=== PATIENT | female | born 1965 | race Caucasian/White ===

== ENCOUNTER → 2017-01-09 | Outpatient (CLI) | payer BC ==
[~2017-01-09] MED LIST: ADVIN25/60 INH; MULTTAB PO
--- NOTE | 2017-01-09 12:31 | MAMMOGRAPHY REPORT ---
BILATERAL DIGITAL SCREENING MAMMOGRAM TOMOSYNTHESIS WITH CAD: 01/09/2017 CLINICAL HISTORY: Routine screening. Patient has no complaints. TECHNIQUE: Breast tomosynthesis in addition to standard 2D mammography was performed. Current study was also evaluated with a Computer Aided Detection (CAD) system. COMPARISON: Comparison is made to exams dated: 01/08/2016 mammogram, 01/04/2014 mammogram, 01/05/2015 mammogram, 01/01/2013 mammogram, 12/31/2011 mammogram, and 12/26/2010 mammogram - [facility]. BREAST COMPOSITION: There are scattered areas of fibroglandular density in both breasts. FINDINGS: No suspicious masses, calcifications, or areas of architectural distortion are noted in e ither breast. There has been no significant interval change compared to prior exams. Grouped benign -appearing calcifications in the left upper outer quadrant are stable compared to multiple prior exa ms. Asymmetry seen within the left medial breast on the cc view is also stable dating back to the 2 008 exam. IMPRESSION: ACR BI-RADS CATEGORY 2: BENIGN There is no mammographic evidence of malignancy. A 1 year screening mammogram is recommended. The p atient will receive written notification of the results. Approximately 10% of breast cancers are not detected with mammography. A negative mammographic repor t should not delay biopsy if a clinically suggestive mass is present. Susan Eastman M.D. ah/:01/09/2017 10:19:39 Metal Sponge Making Machine Operator: Pamella TREVINO(Sabrina)(Jacey)(BD), [facility] letter sent: Normal 1/2 BI-RADS Code: ACR BI-RADS Category 2: Benign
== END | disposition home or self-care (01) ==
LOC: C.MAMM 08:42
PROVIDERS: ATTEND Internal Medicine
DX: Z12.31 Encounter for screening mammogram for malignant neoplasm of breast (principal)

== ENCOUNTER → 2017-02-24 | Outpatient (CLI) | payer BC ==
[2017-02-24 18:18] LABS: ALT/SGPT 37 U/L (12-78); AST/SGOT 16 U/L (15-37); BLOOD UREA NITROGEN 24 mg/dl (7-18); BUN/CREATININE RATIO 30.1 (10-20); CALCIUM 8.9 mg/dl (8.5-10.1); CARBON DIOXIDE 26 mmol/L (21-32); CHLORIDE 106 mmol/L (98-107); CREATININE 0.79 mg/dl (0.60-1.20); GLUCOSE 94 mg/dl (70-99); POTASSIUM 3.9 mmol/L (3.5-5.1); SODIUM 139 mmol/L (136-145)
[2017-02-24 18:29] LABS: ALB/GLOB RATIO 1.5 (0.9-2); ALKALINE PHOSPHATASE 83 U/L (45-117); CHOLESTEROL 160 mg/dl (0-200); CHOLESTEROL/HDL RATIO 2.5; HDL CHOLESTEROL 65 mg/dl; LDL CHOLESTEROL CALCULATED 66 mg/dl; THYROID STIMULATING HORMONE 0.691 uIu/ml (0.300-4.500); TRIGLYCERIDES 147 mg/dl (0-150); VERY LOW DENSITY LIPOPROT CALC 29 mg/dl
== END | disposition home or self-care (01) ==
LOC: C.LABBFT 12:20
PROVIDERS: ATTEND Internal Medicine
DX: E78.00 Pure hypercholesterolemia, unspecified (principal)

== ENCOUNTER → 2017-05-29 | Outpatient (CLI) | payer BC ==
--- NOTE | 2017-05-29 16:43 | DIAGNOSTIC IMAGING REPORT ---
MRI OF THE RIGHT KNEE WITHOUT CONTRAST CLINICAL HISTORY: Right knee pain. Evaluate for meniscal tear. Recent fall. COMPARISON STUDY: Right knee radiographs May 22, 2017. TECHNIQUE: Utilizing a 1.5 Mayra magnet and dedicated coil, multiplanar, multiecho imaging of the right knee was performed without intravenous or intraarticular contrast. FINDINGS: Alignment of the right knee is anatomic. Extensor mechanism is intact. There is no joint effusion. The lateral meniscus is intact. There is a high-grade tear of the posterior root of the medial meniscus. This also intrasubstance signal within the posterior horn of the medial meniscus. The anterior and posterior cruciate ligaments are intact. The medial collateral ligament and lateral collateral ligament complex are intact. There is a 6 mm focus of chondrosis within the cochlear cartilage with mild subchondral signal abnormality. Otherwise, there is minimal chondrosis within the right knee. No mass or fluid collection shown adjacent to the right knee. IMPRESSION: 1. High-grade tear of the posterior root of the medial meniscus. 2. No lateral meniscal tear. 3. Intact cruciate and collateral ligaments. 4. Focal high-grade chondrosis within the medial trochlear cartilage with subchondral signal abnormality. Otherwise, mild chondrosis within the right knee. Electronically signed by: Willian Michaels M.D. 05/29/2017 4:41 PM Dictated Date/Time: 05/29/2017 4:34 PM
== END | disposition home or self-care (01) ==
LOC: C.MRIBC 15:37
PROVIDERS: ATTEND Orthopaedic Surgery
DX: S83.241A Other tear of medial meniscus, current injury, right knee, initial encounter (principal); M11.261 Other chondrocalcinosis, right knee; M25.561 Pain in right knee; W19.XXXA Unspecified fall, initial encounter

== ENCOUNTER → 2017-10-13 | Outpatient (CLI) | payer BC ==
[2017-10-13 18:50] LABS: BASO % 0.1 %; BASO ABS # 0.01 K/uL (0-0.2); COMPLETE YES; EOS % 0.7 %; HEMATOCRIT 37.7 % (37-47); IG% 0.3 %; LYMPH % 34.9 %; LYMPH ABS # 4.13 K/uL (1.2-3.4); MEAN CELL VOLUME 89.3 fL (80-100); MEAN CORPUSCULAR HEMOGLOBIN 31.5 pg (25-34); MEAN CORPUSCULAR HGB CONC 35.3 g/dl (32-36); MEAN PLATELET VOLUME 10.3 fL (7.4-10.4); MONO % 6.8 %; NEUT % 57.2 %; PLATELET COUNT 362 K/uL (130-400); RED BLOOD COUNT 4.22 M/uL (4.2-5.4); WHITE BLOOD COUNT 11.82 K/uL (4.8-10.8)
--- NOTE | 2017-10-13 19:08 | DIAGNOSTIC IMAGING REPORT ---
CHEST 2 VIEWS ROUTINE CLINICAL HISTORY: 52 years-old Female presenting with R11.0 Nausea. TECHNIQUE: PA and lateral views of the chest were obtained. COMPARISON: 03/05/2013. FINDINGS: Cardiomediastinal silhouette normal. Lungs and pleural spaces clear. Osseous structures normal. Upper abdomen normal. IMPRESSION: 1. No acute cardiopulmonary disease. Electronically signed by: Ronald Jimenez M.D. 10/13/2017 7:06 PM Dictated Date/Time: 10/13/2017 7:06 PM
[2017-10-13 19:10] LABS: ALT/SGPT 32 U/L (12-78); BLOOD UREA NITROGEN 18 mg/dl (7-18); BUN/CREATININE RATIO 20.1 (10-20); CALCIUM 8.9 mg/dl (8.5-10.1); CARBON DIOXIDE 24 mmol/L (21-32); CHLORIDE 105 mmol/L (98-107); CHOLESTEROL 157 mg/dl (0-200); CREATININE 0.91 mg/dl (0.60-1.20); GLUCOSE 121 mg/dl (70-99); POTASSIUM 2.9 mmol/L (3.5-5.1); SODIUM 139 mmol/L (136-145)
[2017-10-13 19:13] LABS: ALB/GLOB RATIO 1.5 (0.9-2); ALKALINE PHOSPHATASE 96 U/L (45-117); AST/SGOT 12 U/L (15-37); CHOLESTEROL/HDL RATIO 2.6; HDL CHOLESTEROL 60 mg/dl; LDL CHOLESTEROL CALCULATED 49 mg/dl; TRIGLYCERIDES 241 mg/dl (0-150); VERY LOW DENSITY LIPOPROT CALC 48 mg/dl
== END | disposition home or self-care (01) ==
LOC: C.RAD 18:01
PROVIDERS: ATTEND Internal Medicine
DX: R11.0 Nausea (principal)

== ENCOUNTER → 2017-10-22 | Outpatient (CLI) | payer OTHER, BC ==
[2017-10-22 12:26] LABS: BASO % 0.2 %; BASO ABS # 0.01 K/uL (0-0.2); COMPLETE YES; EOS % 2.3 %; HEMATOCRIT 40.2 % (37-47); IG% 0.2 %; LYMPH % 26.3 %; LYMPH ABS # 1.73 K/uL (1.2-3.4); MEAN CELL VOLUME 94.6 fL (80-100); MEAN CORPUSCULAR HEMOGLOBIN 31.1 pg (25-34); MEAN CORPUSCULAR HGB CONC 32.8 g/dl (32-36); MEAN PLATELET VOLUME 10.4 fL (7.4-10.4); MONO % 9.6 %; NEUT % 61.4 %; PLATELET COUNT 288 K/uL (130-400); RED BLOOD COUNT 4.25 M/uL (4.2-5.4); WHITE BLOOD COUNT 6.58 K/uL (4.8-10.8)
[2017-10-22 12:54] LABS: ALT/SGPT 38 U/L (12-78); AST/SGOT 15 U/L (15-37); BLOOD UREA NITROGEN 20 mg/dl (7-18); BUN/CREATININE RATIO 22.4 (10-20); CALCIUM 9.1 mg/dl (8.5-10.1); CARBON DIOXIDE 26 mmol/L (21-32); CHLORIDE 106 mmol/L (98-107); GLUCOSE 93 mg/dl (70-99); POTASSIUM 4.5 mmol/L (3.5-5.1); SODIUM 139 mmol/L (136-145)
[2017-10-22 12:56] LABS: ALB/GLOB RATIO 1.3 (0.9-2); ALKALINE PHOSPHATASE 85 U/L (45-117)
== END | disposition home or self-care (01) ==
LOC: C.LABBFT 07:21
PROVIDERS: ATTEND Internal Medicine
DX: R19.7 Diarrhea, unspecified (principal); R07.89 Other chest pain; E87.6 Hypokalemia

== ENCOUNTER → 2018-01-13 | Outpatient (CLI) | payer OTHER ==
--- NOTE | 2018-01-13 15:15 | MAMMOGRAPHY REPORT ---
BILATERAL DIGITAL SCREENING MAMMOGRAM TOMOSYNTHESIS WITH CAD: 01/13/2018 CLINICAL HISTORY: Routine screening. Patient has no complaints. TECHNIQUE: Breast tomosynthesis in addition to standard 2D mammography was performed. Current study was also evaluated with a Computer Aided Detection (CAD) system. COMPARISON: Comparison is made to exams dated: 01/09/2017 mammogram, 01/08/2016 mammogram, 01/05/2015 m ammogram, 01/04/2014 mammogram, 01/01/2013 mammogram, and 06/30/2012 mammogram - [facility]. BREAST COMPOSITION: There are scattered areas of fibroglandular density in both breasts. FINDINGS: A linear scar marker overlies the upper outer posterior left breast, denoting an area of pr ior surgery. There have been mild involutional changes comparing to more remote prior mammograms. S table punctate densities in the left upper outer quadrant. Stable focal asymmetry in the far posteri or 12:00 to 1:00 right breast. No suspicious mass, architectural distortion or cluster of microcalci fications is seen. IMPRESSION: ACR BI-RADS CATEGORY 1: NEGATIVE There is no mammographic evidence of malignancy. A 1 year screening mammogram is recommended. The pa tient will receive written notification of the results. Approximately 10% of breast cancers are not detected with mammography. A negative mammographic report should not delay biopsy if a clinically suggestive mass is present. Socorro Dowd M.D. ay/:01/13/2018 09:24:12 International Project Engineer: Sabrina Houser M, [facility] letter sent: Normal 1/2 BI-RADS Code: ACR BI-RADS Category 1: Negative
== END | disposition home or self-care (01) ==
LOC: C.MAMM 08:36
PROVIDERS: ATTEND Internal Medicine
DX: Z12.31 Encounter for screening mammogram for malignant neoplasm of breast (principal)

== ENCOUNTER 2025-02-09 08:48 | Observation (INO) ==
--- NOTE | 2025-01-12 11:25 | PAT Medication Instructions ---
Medication Instructions Date of Service January 12, 2025 Home Medications Medication Instructions Recorded albuterol sulfate 90 mcg/actuation 2 puffs inhalation QID PRN 01/19/20 aerosol inhaler shortness of breath or wheezing #8.5 grams nebulizers #1 ea 03/06/21 albuterol sulfate 2.5 mg/3 mL 2.5 mg (3 mL) inhalation Q4H PRN 05/16/23 (0.083 %) solution for nebulization shortness of breath or wheezing #180 mL budesonide-formoterol HFA 160 2 puff inhalation BID #10.2 grams 02/04/24 mcg-4.5 mcg/actuation aerosol inhaler (Symbicort) ipratropium bromide 0.02 % 2.5 ml inhalation QID PRN 07/08/24 solution for inhalation shortness of breath or wheezing #75 mL paroxetine HCl 10 mg tablet 10 mg PO HS #90 tabs 08/04/24 pantoprazole 40 mg tablet,delayed 40 mg PO HS #90 tabs 11/15/24 release benralizumab 30 mg/mL subcutaneous 30 mg subcut .COMPLEX #1 mL 12/16/24 auto-injector (Fasenra Pen) atorvastatin 20 mg tablet 20 mg PO HS #90 tabs 12/27/24 albuterol sulfate 90 mcg/actuation aerosol inhaler 2 puffs inhalation QID PRN shortness of breath or wheezing multivitamin (Multiple Vitamins tablet) 1 tab PO HS albuterol sulfate 2.5 mg/3 mL (0.083 %) solution for nebulization 2.5 mg (3 mL) inhalation Q4H PRN shortness of breath or wheezing cholecalciferol (vitamin D3) 25 mcg (1,000 unit) capsule 25 mcg PO QAM budesonide-formoterol HFA 160 mcg-4.5 mcg/actuation aerosol inhaler (Symbicort) 2 puff inhalation BID ipratropium bromide 0.02 % solution for inhalation 2.5 ml inhalation QID PRN shortness of breath or wheezing paroxetine HCl 10 mg tablet 10 mg PO HS pantoprazole 40 mg tablet,delayed release 40 mg PO HS benralizumab 30 mg/mL subcutaneous auto-injector (Fasenra Pen) 30 mg subcut .COMPLEX atorvastatin 20 mg tablet 20 mg PO HS cetirizine 10 mg tablet (Zyrtec) 10 mg PO QAM famotidine 20 mg tablet 20 mg PO QAM meloxicam 15 mg tablet 15 mg PO HS PRN pain ASK your surgeon for instructions meloxicam 15 mg tablet 15 mg PO HS PRN pain ASK your prescriber and surgeon benralizumab 30 mg/mL subcutaneous auto-injector (Fasenra Pen) 30 mg subcut .COMPLEX DO NOT take the morning of surgery cholecalciferol (vitamin D3) 25 mcg (1,000 unit) capsule 25 mcg PO QAM cetirizine 10 mg tablet (Zyrtec) 10 mg PO QAM Take morning of surgery With a small sip of water, OTHERWISE NOTHING TO EAT OR DRINK AFTER MIDNIGHT: albuterol sulfate 90 mcg/actuation aerosol inhaler 2 puffs inhalation QID PRN shortness of breath or wheezing (use if needed; please bring rescue inhaler with you to hospital day of surgery if possible) albuterol sulfate 2.5 mg/3 mL (0.083 %) solution for nebulization 2.5 mg (3 mL) inhalation Q4H PRN shortness of breath or wheezing (if needed) budesonide-formoterol HFA 160 mcg-4.5 mcg/actuation aerosol inhaler (Symbicort) 2 puff inhalation BID ipratropium bromide 0.02 % solution for inhalation 2.5 ml inhalation QID PRN shortness of breath or wheezing (if needed) famotidine 20 mg tablet 20 mg PO QAM Take evening before surgery albuterol sulfate 90 mcg/actuation aerosol inhaler 2 puffs inhalation QID PRN shortness of breath or wheezing (if needed) multivitamin (Multiple Vitamins tablet) 1 tab PO HS albuterol sulfate 2.5 mg/3 mL (0.083 %) solution for nebulization 2.5 mg (3 mL) inhalation Q4H PRN shortness of breath or wheezing (if needed) budesonide-formoterol HFA 160 mcg-4.5 mcg/actuation aerosol inhaler (Symbicort) 2 puff inhalation BID ipratropium bromide 0.02 % solution for inhalation 2.5 ml inhalation QID PRN shortness of breath or wheezing (if needed) paroxetine HCl 10 mg tablet 10 mg PO HS pantoprazole 40 mg tablet,delayed release 40 mg PO HS atorvastatin 20 mg tablet 20 mg PO HS Other Notes If you have any questions please call us at [phone] or [phone] or [phone] or [phone]
--- NOTE | 2025-01-20 10:35 | Anesthesiology Consultation ---
Date of Service January 20, 2025 Assessment & Plan (1) Encounter for pre-operative examination: Plan - Outpatient joint assessment: Patient is currently scheduled for inpatient pathway. If re-evaluated and patient/surgeon requests outpatient pathway, patient is acceptable candidate for outpatient joint program from anesthesia standpoint pending surgeon's office assessment of pt motivation/support/completion of same day joint program preop requirements. Chart Review Chart Review: Acceptable Risk for Surgery and Patient seen in Pre Admission Testing Teaching & Discussion Pre-Anesthesia Teaching/Discussion Notes: Instructed NPO after midnight before surgery, except medications with 15 cc of water. Medication instructions provided according to the PAT guidelines. History Surgery Operation Date: 02/09/25 08:55 Proposed Procedures p Right Total Knee Arthroplasty - Efraín Weiss MD Height/Weight Height: 5 ft 4 in Weight: 78.9 kg Allergies Allergy/AdvReac Type Severity Reaction Status Date / Time No Known Drug Allergies Allergy Verified 01/12/25 10:17 Medications Home Medications Medication Instructions Recorded Confirmed Last Taken albuterol sulfate 90 mcg/actuation 2 puffs inhalation QID PRN 01/19/20 01/12/25 12/07/21 aerosol inhaler shortness of breath or wheezing #8.5 grams multivitamin (Multiple Vitamins 1 tab PO HS 11/22/20 01/12/25 12/10/21 tablet) nebulizers #1 ea 03/06/21 07/08/24 Unknown albuterol sulfate 2.5 mg/3 mL 2.5 mg (3 mL) inhalation Q4H PRN 05/16/23 01/12/25 Unknown (0.083 %) solution for nebulization shortness of breath or wheezing #180 mL cholecalciferol (vitamin D3) 25 25 mcg PO QAM 12/01/23 01/12/25 Unknown mcg (1,000 unit) capsule budesonide-formoterol HFA 160 2 puff inhalation BID #10.2 grams 02/04/24 01/12/25 Unknown mcg-4.5 mcg/actuation aerosol inhaler (Symbicort) ipratropium bromide 0.02 % 2.5 ml inhalation QID PRN 07/08/24 01/12/25 Unknown solution for inhalation shortness of breath or wheezing #75 mL paroxetine HCl 10 mg tablet 10 mg PO HS #90 tabs 08/04/24 01/12/25 Unknown pantoprazole 40 mg tablet,delayed 40 mg PO HS #90 tabs 11/15/24 01/12/25 Unknown release benralizumab 30 mg/mL subcutaneous 30 mg subcut .COMPLEX #1 mL 12/16/24 01/12/25 Unknown auto-injector (Fasenra Pen) atorvastatin 20 mg tablet 20 mg PO HS #90 tabs 12/27/24 01/12/25 Unknown cetirizine 10 mg tablet (Zyrtec) 10 mg PO QAM 01/12/25 01/12/25 Unknown famotidine 20 mg tablet 20 mg PO QAM 01/12/25 01/12/25 Unknown meloxicam 15 mg tablet 15 mg PO HS PRN pain 01/12/25 01/12/25 Unknown Past Medical History Medical History (Updated 01/20/25 @ 12:09 by Charito Orr PA-C) Asthma stable, follows with Dr Cortés next appointment 02/01/2025 uses inhaler daily, and nebulizer prn Chronic SI joint pain GERD (gastroesophageal reflux disease) controlled, stable per pt Hyperlipidemia Hypertriglyceridemia Left lumbar radiculopathy Lumbar degenerative disc disease Lumbar spondylosis Nausea and vomiting after administration of anesthetic agent denies needing scop patch Right knee DJD SNHL (sensorineural hearing loss) TMJ (temporomandibular joint disorder) no locking Patient denies h/o stroke, seizures, heart attack, heart failure, DM, HTN, blood clots/DVTs or blood transfusions. Exercise / Class Metabolic Activity II 4-5 Yardwork/Stairs/Walk up hill (denies chest discomfort or shortness of breath with one flight of stairs) Past Family History Family History Mother Diabetes Coronary heart disease Stroke Father Lung cancer Sister Obesity Aunt Breast cancer Other No family history of adverse response to anesthesia Denies family history of Ovarian cancer Prostate cancer Myocardial infarction Colorectal cancer Past Surgical History Surgical History History of arthroscopy of right knee History of section History of colonoscopy History of surgery left thumb tendon repair History of tonsillectomy History of wisdom tooth extraction S/P breast lumpectomy left--benign S/P carpal tunnel release 2013, right S/P DIAZ (total abdominal hysterectomy) 2005 Past Anesthesia History No Hx of Anesthesia Complications and No Family Hx of Anesthesia Complications History of PONV No Hx of Motion Sickness and History of PONV (denies needing scop patch) Social History Smoking Status: Never smoker Do You Dip or Chew Tobacco: No Hx Alcohol Use: Yes Alcohol type: beer alcohol intake frequency: a few times a week Hx Substance Use: No substance use type: does not use Review of Systems Snoring, denies witnessed apneas. Patient denies chest pain, shortness of breath, dyspnea on exertion, fever, chills, cough, wheezing, or palpitations. Physical Exam Vital Signs Vitals BP 120/72 P 70 TEMP 98.0 SP02 97% on RA RESP 19 Physical Patient resting comfortably in chair in no acute distress, alert and oriented, responding appropriately throughout visit Full cervical extension range of motion without pain TMD 3.5 finger breadths Mallampati Score 3 Dentition: several caps, denies chipped or loose teeth, crowns, implants or bridges Lungs: normal respiratory effort. Good air movement, clear throughout to auscultation, no adventitious breath sounds Cardiac: regular rate and rhythm, no murmurs noted Carotid arteries: negative bruit bilat Lab Results Anesthesia Preop Results Results Anesthesia Widget: WBC 4.39 K/ul (4.8-10.8) L 01/20/25 Hgb 12.3 g/dl (12.0-16.0) 01/20/25 Hct 35.8 % (37.0-47.0) L 01/20/25 Plt 284 K/uL (130-400) 01/20/25 Na 140 mmol/L (136-145) 01/20/25 K 4.2 mmol/L (3.5-5.1) 01/20/25 Cl 108 mmol/L (98-107) H 01/20/25 CO2 27 mmol/L (21-32) 01/20/25 BUN 20 mg/dl (6-23) 01/20/25 Creat 0.78 mg/dl (0.6-1.2) 01/20/25 Glucose Level 102 mg/dl (70-99(Fasting)) H 01/20/25 PT 10.0 Seconds (9.0-12.0) 01/20/25 PTT 26 Seconds (21-31) 01/20/25 INR 0.9 (0.9-1.1) 01/20/25 Blood Type O Positive 01/20/25 Antibody Screen NEGATIVE 01/20/25 Testing Electrocardiogram Date: 01/20/25 NSR, rate 61 bpm Chest X-Ray Date: 06/24/24 No active disease in the chest.
[~2025-02-09 08:48] MED LIST changes: -ADVIN25/60 INH; +BUPIVACAINE 0.5 % 5 MG/1 ML PF 10ML VIAL ONE; -MULTTAB PO; +ROPIVACAINE 0.5% 5 MG/ML 30 ML VIAL ONE
--- NOTE | 2025-02-09 09:00 | History & Physical Bridge Note ---
Date of Service February 09, 2025 History & Physical Bridge Note I have examined the patient, reviewed the History & Physical and in the interval since the performance of the History & Physical I have noted the following changes of clinical significance: no changes noted
[2025-02-09] MEDS: LR 500ML BOLUS, THEN 15ML/HR IV SCH (09:30)
[2025-02-09] MEDS: ACETAMINOPHEN 500 MG TAB PO SCH ×2 (09:31→15:26)
[2025-02-09] MEDS: CeleBREX 200 MG CAP PO SCH (09:31)
[2025-02-09] MEDS: LR 60ML/HR IV SCH (09:31)
[2025-02-09] MEDS: METOCLOPRAMIDE HCL 10 MG TABLET PO SCH (09:31)
[2025-02-09] MEDS: dexAMETHasone**PF** 10 MG/ML VIAL IV SCH (09:32)
[2025-02-09] MEDS ORDERED: ePHEDrine sulfate 50 MG/ML AMP IV PRN (09:43)
[2025-02-09] MEDS ORDERED: ONDANSETRON INJ 2 MG/ML 2 ML VIAL IV PRN ×2 (09:43→13:49)
[2025-02-09] MEDS ORDERED: ATROPINE SULFATE 0.1 MG/ML 10ML SYR IV PRN (09:43)
[2025-02-09] MEDS ORDERED: fentaNYL citrate PF 100 MCG/2 ML VIAL IV PRN (09:43)
[2025-02-09] MEDS: FAMOTIDINE 20 MG TAB PO SCH ×2 (09:46→20:34)
[2025-02-09] MEDS ORDERED: MIDAZOLAM HCL 1 MG/ML 2ML VIAL ONE (10:27)
[2025-02-09] MEDS ORDERED: fentaNYL citrate PF 100 MCG/2 ML VIAL ONE (10:27)
[2025-02-09] MEDS ORDERED: DexMEDEtomidine HCL IV 100 MCG/ML VIAL IV ONE (10:51)
[2025-02-09] MEDS ORDERED: ONDANSETRON INJ 2 MG/ML 2 ML VIAL ONE ×2 (10:53)
[2025-02-09] MEDS ORDERED: LIDOCAINE 2% 2 ML VIAL/AMP(20MG/ML) INFIL ONE (10:53)
[2025-02-09] MEDS ORDERED: PROPOFOL IV EMULSION 10 MG/ML 20 ML VIAL IV ONE ×2 (10:54→12:28)
[2025-02-09] MEDS: ceFAZolin 2000MG 2,000 MG/15 ML SYR IV SCH (11:14)
[2025-02-09] MEDS: ORTHO JOINT ANESTHETIC ONE (11:51)
[2025-02-09] MEDS: TRANEXAMIC ACID 1,000 MG **IV Intra-op IV SCH (11:54)
[2025-02-09] MEDS: ROPIV 0.5% 246mg, Ketorolac 30mg, EPINEPHrine 0.5mg in NSS INFIL SCH (12:15)
--- NOTE | 2025-02-09 12:45 | Operative Report ---
PG Post Operative Report Pre & Post Diagnosis Operation Date: 02/09/25 10:40 Pre-Op Diagnosis: Right Knee Degenerative Joint Disease Post-Op Diagnosis: Right Knee Degenerative Joint Disease I identified the patient and participated in the time-out.: Yes Procedure Operation Date: 02/09/25 10:40 Actual Procedures p Right Total Knee Arthroplasty, Cemented(Right) - Efraín Weiss MD Surgeon Efraín Weiss MD Scrap Crane Operator MARLENE Carlin Estimated Blood Loss 50 Findings Consistent with Post-Op Diagnosis Operative findings were advanced right knee DJD of medial compartment of the knee. She had full-thickness cartilage loss. Neuro eburnation with full- thickness cartilage loss. She had a varus deformity to her knee. Moderate- sized knee joint effusion. Some mild to moderate patellofemoral disease. The lateral compartment was pretty well spared. Specimens Right knee sent for pathology. Anesthesia Type Spinal MAC Complications none Disposition Accompanied Patient To Recovery: No Indications Patient is a 59-year-old female is had a several year history of increasing right knee pain discomfort. She did have a history of knee arthroscopy many years ago. She has been through extensive conservative treatment for the arthritis which became less successful over time. X-rays show advanced medial compartment arthritis. She elected proceed with total knee arthroplasty. Description of Procedure Operative implants consist of: 1. Biomet Vanguard size 62.5 right posterior stabilized femoral component. 2. Biomet size 63 tibial tray. 3. 10 mm posterior stabilized polyethylene insert. 4. 28 x 8 all poly patella. The patient was taken to the op room, identified, placed on the operating table in the supine position. All conductors were appropriately padded. IV antibiotics fibra anesthesia team. A spinal anesthetic and adductor canal block had been provided in the holding area. A Olmos catheter was placed in a sterile fashion. A right thigh high tourniquet was then placed. The right lower extremity was then prepped and draped in usual sterile fashion. The right leg was elevated and exsanguinated with use of an Esmarch and turn was placed at 300 mmHg. An anterior approach of the right knee was then performed to a longitudinal incision centered over the patella. Sharp dissection was got through subcutaneous tissue down the extensor mechanism. A medial parapatellar arthrotomy incision was made. Some subperiosteal dissection was carried out medially. The fat pad was dissected from Neath patella tendon. The lateral patellofemoral ligament was released. Patella subluxated laterally and the knee was flexed. The osteophytes taken off distal femur. The ACL and PCL were then released from distal femur and the tibia subluxated anteriorly. The external treatment LYMErix then placed on the anterior face the tibia and adjusted 14 mm medially. Proximal tibial cut was made remove about 2 mm from the medial side. The tibia sized to a size 63. Attention drawn the femur. The distal femur was entered with a sharp drill. Intramedullary canal was suction. A right 5 degree valgus cutting guide was placed. The distal femoral cutting block was pinned in place. This femoral cut was made take an additional 3 mm of bone off distal femur. The femur was then sized to a size 62.5. The AP cutting block was pinned parallel to the epicondylar axis which was 3 degrees of external rotation. The anterior cut, anterior chamfer, posterior cut, posterior chamfer cuts were made. The box cutting guide was placed and just slight lateral and the box cut was made. The knee was flexed. The remnants of the medial and lateral menisci were excised. The osteophytes taken off the posterior aspect the femur. A trial femoral component was placed. The tibial tray was pinned Lula external rotation and the drill and stem punch used to create the defect in proximal tibia for the tibial tray. The knee was then trialed and the 10 mm insert fit most appropriately. Attention drawn the patella. The patella was cleaned of all soft tissues. Patella thickness measured 18 mm in thickness was cut down to 12. Was sized to a size 28 patella. The lug holes were drilled for the 28 patella. The lateral osteophytes removed. Patella button was placed. Knee was taken through range of motion and the patella tracked nicely with no thumbs test. Attention was then drawn to placing the permanent components. All trial components were removed. Bone plug was placed into this femur limit blood loss A double batch Palacos G cement was mixed. A Biomet Vanguard size 62.5 right posterior Byce femoral component, size 63 tibial tray, a 10 mm posterior Byce polyethylene insert, and a 28 x 8 all poly patella then cemented in place. The knee was brought out into full extension till cement hardened. Final cement check was then performed. The pericapsular tissues were injected with total of 100 cc of Ortho mix. The patient did receive 1 g tranexamic acid. The tourniquet was then let down for final turn time 47 minutes. Hemostasis assured use electrocautery. Extensor Meclomen then closed with combination 1 PDS suture and 1 Vicryl suture in a [id number] fashion. Extensor Meclomen checked found to be intact the subcutaneous tissue then closed with 2 Dexon suture in a buried interrupted fashion skin was closed skin yi. Leg was then cleaned and dried and sterile dressing with Xeroform, 4 fours, sterile cast padding, Jay bandage were applied. Patient then transferred to the recovery room in stable condition. Patient tolerated procedure well and there are no complications. Wily Carlin, my physician clinical assistant, was present for the entire procedure. His assistance was essential and required for appropriate patient positioning, prepping and draping, surgical exposure, performing the technical details of the operation, placement the implants, closure of the wound, and placement of the sterile bandage. I attest to the content of the Intraoperative Record and any orders documented therein. Any exceptions are noted below.
--- NOTE | 2025-02-09 13:11 | XRay Report ---
XR knee RT 1 or 2V routine CLINICAL HISTORY: Surgical Post Op COMPARISON: None FINDINGS: Right knee prosthesis shows no hardware complication. There is expected soft tissue gas. S kin yi are present. IMPRESSION: Unremarkable postoperative exam. ACT 112: Negative or not required by law. Electronically signed by: Bharathi Jones M.D. 02/09/2025 1:09 PM
[2025-02-09] MEDS ORDERED: ALBUTEROL HFA 8 GM INHALER INH PRN (13:49)
[2025-02-09] MEDS ORDERED: NALOXONE HCL 0.4 MG/1 ML VIAL/CARP IV PRN (13:49)
[2025-02-09] MEDS ORDERED: bisacodyL 10 MG SUPP PR PRN (13:49)
[2025-02-09] MEDS ORDERED: MAGNESIUM HYDROXIDE SUSP 30 ML UDC PO PRN (13:49)
[2025-02-09] MEDS ORDERED: METOCLOPRAMIDE HCL INJ 5 MG/ML 2 ML VIAL IV PRN (13:49)
[2025-02-09] MEDS ORDERED: HYDROmorphone INJ 0.5 MG/0.5 ML SYR IV PRN (13:49)
[2025-02-09] MEDS ORDERED: diphenhydrAMINE Capsule 25 MG CAP PO PRN (13:49)
[2025-02-09] MEDS ORDERED: ALUMINUM/MAGNESIUM SUSP 30 ML UDC PO PRN (13:49)
[2025-02-09] MEDS ORDERED: IPRATROPIUM BROMIDE NEB SOLN 0.02% 0.5MG/2.5ML VIAL INH PRN (13:49)
[2025-02-09] MEDS ORDERED: ALBUTEROL 0.083% NEBU SOLN 3 ML VIAL INH PRN (13:49)
[2025-02-09] MEDS: KETOROLAC 30 MG/ML VIAL IV SCH (15:25)
[2025-02-09] MEDS: ASCORBIC ACID 500 MG TAB PO SCH (18:26)
[2025-02-09] MEDS: TRANEXAMIC ACID / 0.7% NACL 1,000 MG/100 ML BAG IV SCH (18:27)
[2025-02-09] MEDS: ceFAZolin 1000MG 1,000 MG/7.5 ML SYR IV SCH (18:27)
[2025-02-09] MEDS: ATORVASTATIN 20 MG TAB PO SCH (20:34)
[2025-02-09] MEDS: PARoxetine HCL 10 MG TAB PO SCH (20:34)
[2025-02-09] MEDS: PANTOprazole 40 MG TAB PO SCH (20:34)
[2025-02-09] MEDS: DOCUSATE SODIUM 100 MG CAP PO SCH (20:34)
[2025-02-09] MEDS: SENNA 8.6 MG TAB PO SCH (20:34)
[2025-02-09] MEDS: ASPIRIN 81 MG ECTAB PO SCH (20:34)
[2025-02-09] MEDS ORDERED: NON-FORMULARY MEDICATION (Multivitamin [Multiple Vitamins] tablet) PO SCH (21:00)
[2025-02-09] MEDS ORDERED: SENNA 8.6 MG TAB PO SCH (21:00)
[2025-02-10] MEDS: oxyCODONE HCL IR 5 MG TAB (IMMEDIATE RELEASE) PO PRN (03:36)
[2025-02-10 07:49] VITALS: BP 134/76; PULSE 61; RESP 16; TEMP 97.9; O2SAT 98
[2025-02-10] MEDS: dexAMETHasone 10 MG in SYRINGE 0 ML IV SCH (08:03)
[2025-02-10] MEDS: CHOLECALCIFEROL 25 MCG (1000 UNITS) TAB PO SCH (08:03)
[2025-02-10] MEDS: MULTIVITAMIN TAB PO SCH (08:04)
[2025-02-10] MEDS: CETIRIZINE HCL 10 MG TABLET PO SCH (08:04)
[2025-02-10 08:08] LABS: Hematocrit (blood only) 31.5 % (37.0-47.0); Mean Corpuscular Hgb Conc 34.9 g/dL (32.0-36.0); Mean Corpuscular Volume 88.7 fL (80.0-100.0); Mean Platelet Volume 10.7 fL (9.4-12.4); Platelet Count 284 K/uL (130-400); RDW Standard Deviation 39.2 fL (36.4-46.3); Red Blood Count 3.55 M/uL (4.20-5.40); White Blood Count 12.21 K/ul (4.8-10.8)
[2025-02-10] MEDS: FLUTICASONE/VILANTEROL 200/25MCG 14 PUFFS/INHALER INH SCH (08:16)
--- NOTE | 2025-02-10 08:31 | Orthopedic Progress Note ---
Date of Service February 10, 2025 Assessment & Plan (1) Status post right knee replacement: POD 1 from a right total knee arthroplasty by Dr. Weiss -SCDs, FRANKIE stockings and aspirin 81 mg twice daily for DVT prophylaxis -Dressing can be changed by the patient on postop day 2 at home. This is all in the instructions. -Please work with PT/OT for mobilization and safe discharge planning prior to discharge. -She states that she has home health/home PT planned already. -Weightbearing as tolerated. -Follow-up in [address] Weiss for initial postop check and staple removal. Subjective Operation Date: 02/09/25 10:40 Actual Procedures p Right Total Knee Arthroplasty, Cemented(Right) - Efraín Weiss MD Patient is postop day 1 from a right total knee arthroplasty by Dr. Weiss. Patient states she is doing well. States that her knee pain is very noticeable when she performs flexion of the knee. Other than that, she is doing well. PT/OT has not been in to see her yet. They will see her later today. She states that she will be going home with home health/PT services. Review of Systems All systems reviewed & are unremarkable except as noted in HPI & below. Physical Exam General: Alert and oriented. No acute distress. Right lower extremity: Jay wrap is intact. It is dry without saturation. She has very good range of motion of the right ankle and foot. She is able to flex to about 20 degrees until her pain becomes noticeable. Neuro vastly intact right lower extremity. Results & Data Results & Data Laboratory Results . Diagnostic Findings . PG Care Time/CCT Total # of Minutes Spent Total Time Spent with Patient: Total time spent is greater than 50% in coordination of care (as documented) at patient's floor/unit and/or counseling patient: Coding Level of Care Code 08271 Post Operative Follow-Up Diagnoses Status post right knee replacement Z96.651
--- NOTE | 2025-02-10 08:31 | Discharge Summary ---
Date of Service February 10, 2025 Admission HPI (Per Admitting) Patient is a 59-year-old female is had a several year history of increasing right knee pain discomfort. She did have a history of knee arthroscopy many years ago. She has been through extensive conservative treatment for the arthritis which became less successful over time. X-rays show advanced medial compartment arthritis. She elected proceed with total knee arthroplasty. Admission Exam (Per Admitting) Examination of the right knee reveals the patient ambulates independently. I do not detect any real limp. She has got fairly neutral alignment to her knee. Minimal knee effusion. Range of motion is 0 to 125. No instability. No pain with hip motion. Principal Diagnosis Same as "Discharge Diagnosis" noted below under Discharge Instructions. Discharge Exam General: Alert and oriented. No acute distress. Right lower extremity: Jay wrap is intact. It is dry without saturation. She has very good range of motion of the right ankle and foot. She is able to flex to about 20 degrees until her pain becomes noticeable. Neuro vastly intact right lower extremity. Discharge Data Procedures Performed Operation Date: 02/09/25 10:40 Actual Procedures p Right Total Knee Arthroplasty, Cemented(Right) - Efraín Weiss MD Ordered Studies 02/09/25 05:00 US - OR guided needle placemen Routine Hospital Course (1) Status post right knee replacement: POD 1 from a right total knee arthroplasty by Dr. Weiss -SCDs, FRANKIE stockings and aspirin 81 mg twice daily for DVT prophylaxis -Dressing can be changed by the patient on postop day 2 at home. This is all in the instructions. -Please work with PT/OT for mobilization and safe discharge planning prior to discharge. -She states that she has home health/home PT planned already. -Weightbearing as tolerated. -Follow-up in [address] Weiss for initial postop check and staple removal. PG Care Time/CCT Total # of Minutes Spent Total Time Spent with Patient: Total time spent is greater than 50% in coordination of care (as documented) at patient's floor/unit and/or counseling patient: Discharge Plan Discharge Items Patient Disposition: Home - Home Health Services Reason For Visit: Right Knee Osteoarthritis Discharge Diagnosis: Right Knee Replacement Activity: Per Instructions section Weightbearing: Full weightbearing Non-emergency contact: Surgeon Call non-emergency contact if: you have any medication questions Follow-up/Referrals: Veronica Church CRNP [Primary Care Provider] - Diet: Regular Addtl Attending Provider Instructions: ACTIVITY RECOMMENDATIONS: Diet: * You may resume previous diet. Physical Therapy: * You will go to physical therapy three times each week for four to six weeks after your surgery in order to regain your knee range of motion and to retrain your knee to work properly. * It is just as important to make sure you are getting your knee perfectly straight as it is to regain your knee bend. * Taking a pain pill an hour before therapy can help you have a more productive and comfortable therapy session. Home Exercise: * You were shown a series of exercises (heel props, heel slides, etc.) in the hospital. Do these exercises three to four times each day including the exercises you were shown in physical therapy. Walking: * Get up and walk several times each day. For the first four weeks, try not to stand or walk for more than one hour at a time. If you do stand or walk for more than one hour, you will not hurt anything, but your knee and leg will likely swell. * As you feel comfortable, you may change from the walker or crutches to a cane and then to independent walking. MEDICATIONS: New Medicine: * You will likely be taking one or more of these medications: 1. Oxycodone - A quick and shorter-acting pain medication. Take one to two tablets every six hours to lessen your pain. 2. Aspirin - Thins your blood to lessen the chance of forming a blood clot. * The most common side effects of pain medicine and iron are nausea and constipation. If nausea or constipation is too much of a problem or if you have any questions about your new medicines or doses, call [facility] at . We will try to help you manage these issues. "VERY IMPORTANT TO READ AND REVIEW" Pain: * The immediate post-operative period after knee replacement surgery is often quite painful. * You are given a prescription for pain medicine. You should take it, as directed, when you need it, especially before physical therapy and before going to bed. Pain that interferes with sleep is very common and can last several months. * You will likely need pain medicine for the first four to six weeks. It will not stop all of the pain. The pain will lessen and as you feel better, you may change to milder pain medicine such as Tylenol. * The most common side effects of pain medicine are nausea and constipation, so don't take more than you need. SPECIAL CARE INSTRUCTIONS: TEDs/Elastic Stockings: * The white elastic stockings help limit swelling and prevent blood clots from forming in your legs. The more you wear them, the more they work. * Wear them for six weeks after knee replacement surgery and four weeks after partial knee replacement. Incision Site Care: * Remove dressing postoperative day 2 and then shower. Keep direct shower pressure off the incision site. * After showering, cover yi with dry gauze and change daily or more frequently if the dressing is getting saturated with drainage. * Use the FRANKIE stockings to hold dressing in place. DO NOT apply tape on the skin. * May completely stop using bandage if wound is dry and no drainage * Yi are removed between 2 and 3 weeks post-op. If your follow-up appointment is made before 2 weeks, please have your appointment re- scheduled. It is too early to remove the yi. Prevention of Infection: * Take antibiotics one hour before any dental cleaning, dental work, urological procedure, gastrointestinal procedure or any invasive surgery in order to prevent your new joint from getting infected. * You may get the antibiotics from the doctor performing the procedure or you may call our office at [phone] before and we will call in a prescription to the pharmacy of your choice. Things to Watch For: * Drainage from the incision site that occurs more than one week after your surgery. * Severely increased knee/leg pain or swelling. * Increased redness at the incision site. * Fever above 102 degrees Fahrenheit. * Unusual chest pain or shortness of breath. * Unusual pain or burning with urination. Call [facility] at [phone] with any of the above problems or if you have any questions about your medicines or recovery. FOLLOW UP VISIT: Make an appointment to see your doctor for approximately two weeks after surgery for a progress check and staple removal by calling the office at [phone]. Pending Studies at Discharge: No Stand-Alone Forms: [facility] Smoking Cessation Medications and DC Order Prescriptions: Continued albuterol sulfate 90 mcg/actuation HFA aerosol inhaler 2 puffs INH QID PRN (Reason: shortness of breath or wheezing) Qty: 8.5 0RF (DME) nebulizers [facility] [place] See Rx Instructions .ROUTE .MEDSUPPLY Qty: 1 0RF Rx Instructions: NEBULIZER and NEBULIZER ACCESORIES. DX: J45.909 albuterol sulfate 2.5 mg /3 mL (0.083 %) solution for nebulization 2.5 mg INH Q4H PRN (Reason: shortness of breath or wheezing) Qty: 180 0RF cholecalciferol (vitamin D3) 25 mcg (1,000 unit) capsule 25 mcg PO QAM paroxetine HCl 10 mg tablet 10 mg PO HS Qty: 90 3RF pantoprazole 40 mg tablet,delayed release (DR/EC) 40 mg PO HS Qty: 90 3RF Fasenra Pen 30 mg/mL auto-injector 30 mg subcut .COMPLEX Qty: 1 6RF Patient Comments: next injection 01/21/2025 Rx Instructions: INJECT 30MG EVERY 8 WEEKS ( Loading dose already given in the office) APPROVED for maintenance GOOD 06/01/24 - 06/01/25 atorvastatin 20 mg tablet 20 mg PO HS Qty: 90 3RF (DME) [facility] [place] See Rx Instructions .MEDSUPPLY Qty: 1 0RF Rx Instructions: As directed ondansetron 4 mg tablet,disintegrating 4 mg PO Q8 PRN (Reason: nausea) Qty: 20 1RF Rx Instructions: Take as needed for nausea sennosides [Senokot] 8.6 mg tablet 8.6 mg PO BID 14 Days Qty: 28 0RF Rx Instructions: Take two times a day to prevent/treat constipation acetaminophen [Tylenol Extra Strength] 500 mg tablet 1,000 mg PO TID 30 Days Qty: 180 0RF Rx Instructions: Take 3 times per day to lessen pain. aspirin [Viktoria Low Dose Aspirin] 81 mg tablet,delayed release (DR/EC) 81 mg PO BID 45 Days Qty: 90 0RF Rx Instructions: Take to prevent blood clots. cefadroxil 500 mg capsule 500 mg PO BID 7 Days Qty: 14 0RF Rx Instructions: Take 1 cap twice a day to prevent infection oxycodone 5 mg tablet 5 - 10 mg PO Q6 PRN (Reason: pain) Qty: 40 0RF Rx Instructions: Take as needed for pain multivitamin [Multiple Vitamins] Tablet 1 tab PO HS budesonide-formoterol [Symbicort] 160-4.5 mcg/actuation HFA aerosol inhaler 2 puff inhalation BID Qty: 10.2 6RF ipratropium bromide 0.02 % solution 2.5 ml inhalation QID PRN (Reason: shortness of breath or wheezing) Qty: 75 6RF cetirizine [Zyrtec] 10 mg Tablet 10 mg PO QAM famotidine 20 mg tablet 20 mg PO QAM Rx Instructions: AT BEDTIME Discontinued meloxicam 15 mg tablet 15 mg PO HS PRN (Reason: pain) Rx Instructions: take with food Admission Data Admit Date/Time: 02/09/25 12:42 Attending Provider: Efraín Weiss Admit Provider: Efraín Weiss Primary Care Provider: Veronica Church Other Providers: [facility],Home Health Other Interventions: Discharge Summary Assessment (RN) Last Done: 02/10/25 10:49
[2025-02-10 08:32] LABS: BUN Creatinine Ratio 22.2 (10-20); Calcium 8.8 mg/dl (8.6-10.3); Creatinine Clr Calc Pharmacy 85.6 ml/min; Potassium 3.6 mmol/L (3.5-5.1)
[2025-02-10] MEDS ORDERED: FAMOTIDINE 20 MG TAB PO SCH (09:00)
--- NOTE | 2025-02-15 19:26 | Anesthesiology Progress Note ---
Date of Service February 09, 2025 Anesthesia Post Procedure Pain Intensity Right Knee: Pain Intensity: 8 Notes Mental Status: alert / awake / arousable Patient Amnestic to Procedure: Yes Nausea / Vomiting: adequately controlled Pain: adequately controlled Airway Patency, RR, SpO2: stable & adequate BP & HR: stable & adequate Hydration State: stable & adequate Neuraxial Anesthesia: was administered and sensory block is resolving Anesthetic Complications: no major complications apparent
== END 2025-02-10 11:05 | disposition home health service (06) ==
LOC: 3N 08:48 → ASU 08:48